=== PATIENT | male | born 1965 ===

== ENCOUNTER 2023-03-24 10:19 | Emergency (ER) | payer MEDICARE ==
[~2023-03-24] VITALS: Ht 175.3 cm; Wt 138.8 kg
[~2023-03-24 10:19] MED LIST: ACET500 PO; ASPI81CH PO; CARV3.125 PO; CARV6.25 PO; CEPH500 PO; CLOP75 PO; CRUTCH2 USE; Cleocin HCl150 MG PO; DIGO.25 PO; FLUZONE IM; FURO40 PO; HYDACE5 PO; LISI5 PO; METO50ER PO; POTCHL20ER PO; Percocet 5-3251 EACH PO; VALA500 PO; WARF10 PO; WARF5 PO
[2023-03-24 10:40] VITALS: BP 133/66
== END 2023-03-24 10:47 | disposition home or self-care (01) ==
LOC: ER 10:19
DX: M79.631 Pain in right forearm (principal); Z91.038 Other insect allergy status; Z91.048 Other nonmedicinal substance allergy status; Z79.899 Other long term (current) drug therapy; Z79.01 Long term (current) use of anticoagulants; Z79.82 Long term (current) use of aspirin
CPT/HCPCS: 99283

== ENCOUNTER 2023-05-24 08:44 | Day surgery (SDC) | payer OTHER ==
[~2023-05-24] VITALS: Ht 170.2 cm; Wt 133.1 kg
[2023-05-24] MEDS ORDERED: ELIQUIS5 M2 PO (09:33)
[2023-05-24] MEDS ORDERED: JARDIANCE25 MG PO (09:34)
[2023-05-24 09:44] VITALS: BP 118/65
--- NOTE | 2023-05-24 09:52 | NUR ---
Ambulatory in Day Surgery History, Chart, Medications and Allergies reviewed before start of procedure. Pre-Op teaching done. Pt verbalizes understanding. Patient States Post-Procedure ride home has been arranged.
[2023-05-24 11:04] VITALS: BP 115/74
[2023-05-24 11:15] VITALS: BP 116/79
--- NOTE | 2023-05-24 17:23 | NUR ---
05/24/23 1723 Celia HeLATE ENTRY* INTO OR 1023.History, Chart, Medications and Allergies reviewed before start of procedure.MONITOR INTACT WITH CONTINUOUS PULSE OXIMETRY, CONTINUOUS END TITAL CO2, AND INTERMITTENT BLOOD PRESSURE.3-LEAD EKG REVIEWED WITH PHYSICIAN PRIOR TO START OF PROCEDURE.O2 VIA N/C INTACT THROUGHOUT SEDATION/PROCEDURE.DR. ORDONEZ PROVIDING ANESTHESIA.
== END 2023-05-24 22:55 | disposition home or self-care (01) ==
LOC: ORSCMMR 08:44 → ORD 10:15 → ORSCMMR 22:55
PROVIDERS: Internal Medicine Gastroenterology
PROC: 0DBM8ZX Excision of Descending Colon, Via Natural or Artificial Opening Endoscopic, Diagnostic (ICD-10-PCS; principal; 2023-05-24 10:15)
PROC: 0DBH8ZX Excision of Cecum, Via Natural or Artificial Opening Endoscopic, Diagnostic (ICD-10-PCS; principal; 2023-05-24 10:15)
DX: Z12.11 Encounter for screening for malignant neoplasm of colon (principal); K63.5 Polyp of colon; K64.4 Residual hemorrhoidal skin tags; K64.8 Other hemorrhoids; Z86.010 Personal history of colon polyps; I48.20 Chronic atrial fibrillation, unspecified; E11.9 Type 2 diabetes mellitus without complications; I50.9 Heart failure, unspecified; E66.01 Morbid (severe) obesity due to excess calories; Z68.42 Body mass index [BMI] 45.0-49.9, adult; Z79.01 Long term (current) use of anticoagulants; Z79.82 Long term (current) use of aspirin; Z79.899 Other long term (current) drug therapy
CPT/HCPCS: 82947; 88305; J2704; J7120

== ENCOUNTER → 2023-09-04 | Outpatient (CLI) | payer OTHER ==
[~2023-09-04] MED LIST changes: +ELIQUIS5 M2 PO; +JARDIANCE25 MG PO
[2023-09-04 17:11] LABS: Alanine Aminotransfer (ALT/SGP 30 U/L (12-78); Albumin/Globulin Ratio 0.9 (0.8-1.8); Alk Phos 61 U/L (50-136); Anion Gap 11 mmol/L (3-11); Aspartate Aminotrans (AST/SGOT 24 U/L (12-37); Bilirubin, Total 1.4 mg/dL (0.1-1.0); Blood Urea Nitrogen 21 mg/dL (8-24); Bun/Creatinine Ratio 25.5 (12.0-20.0); CHOL/HDL RATIO 2.9; CO2, Blood 21 mmol/L (21-32); Calcium, Blood 10.2 mg/dL (8.5-10.1); Chloride, Blood 108 mmol/L (98-108); Cholesterol 158 mg/dL (50-200); Creatinine, Blood 0.82 mg/dL (0.60-1.20); Digoxin (Lanoxin) 0.16 ug/mL (0.80-2.00); Globulin, Blood 4.4 g/dL (2.2-4.0); Glomerular Filtration Rate 101 (60-); Glucose, Blood 138 mg/dL (70-99); HDL Cholesterol 54 mg/dL (>39); LDL/HDL RATIO 1.6; Low Density Lipoprotein Chol 84 mg/dL (0-110); Potassium, Blood 4.3 mmol/L (3.5-5.5); Sodium, Blood 136 mmol/L (136-145); Total Protein, Blood 8.4 g/dL (6.4-8.2); Triglycerides 98 mg/dL (30-160); Very Low Density Lipoprot Chol 19 mg/dL (6-32)
== END | disposition home or self-care (01) ==
LOC: LAB 15:05 → LAB SHORT 15:05
PROVIDERS: Family Medicine
DX: E11.9 Type 2 diabetes mellitus without complications (principal); E21.0 Primary hyperparathyroidism; Z79.899 Other long term (current) drug therapy
CPT/HCPCS: 80053; 80061; 80162; 82306; 83970; 84443

== ENCOUNTER 2024-01-09 06:23 | Day surgery (SDC) | payer OTHER ==
[~2024-01-09] VITALS: Ht 172.7 cm; Wt 131.4 kg
[~2024-01-09 06:23] MED LIST changes: +DIGOX125 MC1 PO; +Lactated Ringer's 1,000 ML IV ONE; +METO100 PO; -METO50ER PO
[2024-01-09] MEDS ORDERED: Lidocaine 2%-Epineph 1:100000 20 ML MDV ONE (06:55)
[2024-01-09] MEDS ORDERED: Lactated Ringer's 1,000 ML IV ONE (07:18)
[2024-01-09] MEDS ORDERED: propofoL 80 ML IV ONE (07:24)
[2024-01-09] MEDS ORDERED: Midazolam HCl 1MG / ML 2ML Vial ONE (07:24)
[2024-01-09] MEDS ORDERED: FentaNYL Citrate 50 MCG/ML 2 ML Injection ONE (07:25)
[2024-01-09] MEDS ORDERED: propofoL 100 ML IV ONE (07:30)
--- NOTE | 2024-01-09 07:33 | NUR ---
01/09/[address] IN TO DISCUSS VITAMIN D PT HAS AT HOME. OK TO CONTINUE TAKING VITAMIN 1000MG
[2024-01-09] MEDS ORDERED: Phenylephrine HCl 100 MCG/ML-NS 10MLSYR (1MG/10ML) ONE (08:00)
[2024-01-09] MEDS ORDERED: Dexamethasone Sod Phos 10 MG/ML 1ML VIAL ONE (08:03)
[2024-01-09] MEDS ORDERED: Ondansetron HCl 2 MG / ML 2ML Vial ONE (08:03)
[2024-01-09] MEDS ORDERED: SuccINYLCHOLINE Chloride 100 MG/5 ML 5MLSYR ONE (08:13)
[2024-01-09] MEDS ORDERED: Rocuronium Bromide 10 MG/ML 5ML Injection IV ONE (08:13)
[2024-01-09] MEDS ORDERED: Lidocaine 1%-Epineph 1:200000 30 ML SDV INJ ONE (08:18)
[2024-01-09] MEDS ORDERED: Metoprolol Tartrate 0 ML IV ONE (08:21)
[2024-01-09] MEDS ORDERED: METOPROLOL TARTRATE IV ONE (08:29)
--- NOTE | 2024-01-09 10:25 | NUR ---
01/09/24 1025 FAUZIA SELLERS PAIN 09/13. DENIES NAUSEA.
[2024-01-09 10:36] VITALS: BP 127/81
--- NOTE | 2024-01-09 10:37 | NUR ---
01/09/24 [facility] FAUZIA SELLERS PT TAKES ELIQUIS FOR CHRONIC AFIB. HOLD X 5 DAYS
[2024-01-09] MEDS ORDERED: OxyCODONE HCL 5 MG TAB ONE (11:07)
== END 2024-01-09 12:05 | disposition home or self-care (01) ==
LOC: ORSCSDS 06:23
PROVIDERS: Otolaryngology
PROC: 0GBL0ZZ Excision of Right Superior Parathyroid Gland, Open Approach (ICD-10-PCS; principal; 2024-01-09 07:30)
DX: E21.0 Primary hyperparathyroidism (principal); E11.22 Type 2 diabetes mellitus with diabetic chronic kidney disease; N18.2 Chronic kidney disease, stage 2 (mild); I48.91 Unspecified atrial fibrillation; Z79.01 Long term (current) use of anticoagulants; Z79.899 Other long term (current) drug therapy; Z79.82 Long term (current) use of aspirin; E78.5 Hyperlipidemia, unspecified; E66.01 Morbid (severe) obesity due to excess calories; Z68.41 Body mass index [BMI] 40.0-44.9, adult
CPT/HCPCS: 82947; 83970; 88305; 88331; 88332; A9270; J0330; J1100; J2250; J2371; J2405; J2704; J3010; J7120